=== PATIENT | male | born 1960 | race African-American/Black ===

== ENCOUNTER 2018-09-30 18:03 | Emergency (ER) | payer BC, OTHER ==
[2018-09-30 18:12] VITALS: BP 122/68; PULSE 87; TEMP 98.2; BMI 22.6
[2018-09-30] MEDS ORDERED: ACETAMINOPHEN 325 MG TABLET (FP) PO ONE (18:49)
[2018-09-30] MEDS ORDERED: LIDOCAINE 5% TOPICAL PATCH TP ONE (18:50)
[2018-09-30] MEDS ORDERED: CYCLOBENZAPRINE HCL 5 MG TABLET PO ONE (18:55)
[2018-09-30] MEDS ORDERED: ACETAMINOPHEN 325 MG TABLET (FP) ONE (18:59)
[2018-09-30] MEDS ORDERED: CYCLOBENZAPRINE HCL 10 MG TABLET (FP) ONE (19:00)
[2018-09-30] MEDS ORDERED: LIDOCAINE 5% TOPICAL PATCH ONE (19:00)
--- NOTE | 2018-09-30 19:22 | PDOC ---
History of Present Illness - General Chief Complaint: Back Pain Stated Complaint: LOWER BACK PAIN Time Seen by Provider: 09/30/18 18:25 History Source: Patient Exam Limitations: No Limitations Past History - Past Medical History Allergies/Adverse Reactions: Allergies Allergy/AdvReac Type Severity Reaction Status Date / Time No Known Allergies Allergy Verified 09/30/18 18:09 Home Medications: Ambulatory Orders Cyclobenzaprine HCl [Flexeril -] 10 mg PO HS #7 tablet 09/30/18 Lidocaine 5% Patch [Lidoderm Patch -] 1 patch TP DAILY #30 patch 09/30/18 COPD: No Diabetes: Yes - Immunization History Immunization Up to Date: Yes - Suicide/Smoking/Psychosocial Hx Smoking History: Never smoked Hx Alcohol Use: No Drug/Substance Use Hx: No *Physical Exam - Vital Signs Last Vital Signs Temp Pulse Resp BP Pulse Ox 98.2 F 87 17 122/68 100 09/30/18 18:09 09/30/18 18:09 09/30/18 18:09 09/30/18 18:09 09/30/18 18:09 - Physical Exam General Appearance: No: Apparent Distress Respiratory/Chest: positive: Lungs Clear, Normal Breath Sounds. negative: Respiratory Distress Cardiovascular: positive: Regular Rhythm, Regular Rate, S1, S2. negative: Murmur Gastrointestinal/Abdominal: positive: Normal Bowel Sounds, Soft. negative: Tender, Distended, Guarding, Rebound Musculoskeletal: positive: Other (Slight pain with extension/flexion of pain, mild R paravertebral muscle TTP, no spinal tenderness). negative: CVA Tenderness, Vertebral Tenderness Extremity: positive: Normal Inspection. 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 intact, Fully Oriented, Alert, Normal Mood/ Affect, Motor Strength 5/5, Other (Normal gait) Moderate Sedation - Procedure Monitoring Vital Signs: Procedure Monitoring Vital Signs Temperature 98.2 F 09/30/18 18:09 Pulse Rate 87 09/30/18 18:09 Respiratory Rate 17 09/30/18 18:09 Blood Pressure 122/68 09/30/18 18:09 O2 Sat by Pulse Oximetry (%) 100 09/30/18 18:09 ED Treatment Course - RADIOLOGY Radiology Studies Ordered: Category Date Time Status SPINE-LUMBAR SACRAL [RAD] Stat Radiology 09/30/18 18:51 Ordered Medical Decision Making - Medical Decision Making 58 y/o M hx of DM, BPH, R knee replacement presents with lower back pain that started yesterday after getting up from chair. Has been taking Naprosyn without relief of pain. Denies heavy lifting or recent trauma. Mentions injured his back around 5 years ago (unclear what of imaging done then), but pain had resolved for the most part with physical therapy. Denies fever, chills, sob, cp , abd pain, n/v/d, bowel/bladder incontinence, urinary complaints Possible muscle strain? PE unremarkable Plan: Flexeril, Tylenol, Lido patch, LS x-ray, reassess 09/30/18 19:00 Patient pain better on reassessment LS xray reviewed - some loss of disc height noted along lumbar spine along with mild anterolisthesis of L4-L5 Patient explained findings; advised to f/u with PCP 09/30/18 19:46 *DC/Admit/Observation/Transfer Diagnosis at time of Disposition: Lower back pain Qualifiers: Chronicity: acute Back pain laterality: right Sciatica presence: without sciatica Qualified Code(s): M54.5 - Low back pain - Discharge Dispostion Disposition: HOME Condition at time of disposition: Improved - Prescriptions Prescriptions: Cyclobenzaprine HCl [Flexeril -] 10 mg PO HS #7 tablet Lidocaine 5% Patch [Lidoderm Patch -] 1 patch TP DAILY #30 patch - Referrals - Patient Instructions Printed Discharge Instructions: DI for Low Back Pain Additional Instructions: Thank you for choosing [facility]. It was a pleasure taking care of you. You may take Tylenol 650 mg or Motrin 600 mg every 4 hours by mouth as needed for mild to moderate pain. Take Motrin with food. Do not take more than 4000 mg of Tylenol in 1 day. Take Flexeril as needed for muscle spasms. This medication can make you drowsy. Apply lidocaine patch to help with back pain There are some degenerative changes to your spine Follow-up with your primary care doctor for further evaluation and management of back pain Return to the Emergency Department if your symptoms worsen or persist, you have fever, shortness of breath, chest pain, severe abdominal pain, vomiting, weakness of extremities (arms and/or legs), unable to walk, unable to control bowel or bladder movements or other concerning symptoms. - Post Discharge Activity
[2018-09-30] MEDS ORDERED: LIDOCAINE PATCH REMOVAL MC SCH (22:00)
[2018-10-01] MEDS ORDERED: CYCLOBENZAPRINE HCL 5 MG TABLET PO ONE (18:51)
== END 2018-09-30 20:11 | disposition home or self-care (01) ==
LOC: JERFT 18:03
DX: M54.5 Low back pain (principal)
CPT/HCPCS: 72100-TC-FY; 99281-25